=== PATIENT | female | born 1945 | race Caucasian/White ===

== ENCOUNTER 2022-06-10 08:26 | Outpatient (CLI) | payer MEDICARE, SELFPAY ==
[2022-06-10 19:44] LABS: Basophils Absolute Auto 0.1 K/mm3 (0.0-0.1); Basophils Percent Auto 0.7 % (0.2-1.2); Eosinophils Absolute Auto 0.1 K/mm3 (0-0.3); Eosinophils Percent Auto 1.4 % (0-4.4); Hematocrit 40.5 % (37.0-47.0); Immature Granulocyte Absolute 0.03 K/mm3 (0.00-0.031); Immature Granulocyte Percent A 0.3 % (0-0.5); Lymphocytes Absolute Auto 1.68 K/mm3 (0.9-3.2); Lymphocytes Percent Auto 18.3 % (18.3-44.2); Mean Corpuscular HGB Conc 32.1 g/dl (32-36); Mean Corpuscular Volume 90.4 fl (80-100); Mean Platelet Volume 10.8 fl (7.4-10.4); Monocytes Absolute Auto 0.8 K/mm3 (0.1-0.6); Monocytes Percent Auto 8.3 % (2.6-8.5); Neutrophils Absolute Auto 6.5 K/mm3 (1.3-6.7); Platelet Count Result 348 k/mm3 (150-375); Red Blood Count 4.48 M/mm3 (4.2-5.4); Red Cell Distribution Width 13.2 % (11.5-14.5); White Blood Count 9.2 K/mm3 (4.5-10.0)
[2022-06-10 20:45] LABS: Alanine Aminotransferase 19 U/L (6-35); Albumin Level 4.5 g/dL (3.5-5.1); Alkaline Phosphatase 75 U/L (38-126); Anion Gap 7 mmol/L (8-16); Aspartate Amino Transferase 31 U/L (14-36); Bilirubin,Total 0.6 mg/dL (0.2-1.3); Blood Urea Nitrogen 6 mg/dL (7-17); Calcium 9.6 mg/dL (8.4-10.2); Carbon Dioxide 29 mmol/L (22-30); Chloride 97 mmol/L (98-107); Cholesterol 214 mg/dL (0-200); Estimated Glomerular Filt Rate > 60; Glucose 111 mg/dL (65-110); HDL Direct 58 mg/dL; Potassium 3.9 mmol/L (3.4-5.0); Sodium 133 mmol/L (137-145); Triglycerides 136 mg/dL (<150)
[2022-06-10 20:56] LABS: LDL Cholesterol Direct 96 mg/dL
[2022-06-10 21:54] LABS: Vitamin D 25 Hydroxy 59.2 ng/mL
[2022-06-10 22:07] LABS: Thyroid Stimulating Hormone Reflex 0.417 uIU/mL (0.465-4.68)
[2022-06-11 09:00] LABS: Free T4 Free Thyroxine Reflex 1.63 ng/dL (0.78-2.19)
[2022-06-11 11:16] LABS: Total Triiodothyronine (T3) 1.31 NG/ML (0.97-1.69)
== END 2022-06-10 08:27 | disposition home or self-care (01) ==
LOC: ANHGOSHLAB 08:29
PROVIDERS: PCP Family Medicine; Visit Provider Family Medicine
DX: E78.5 Hyperlipidemia, unspecified (principal); I10 Essential (primary) hypertension; R53.83 Other fatigue; E55.9 Vitamin D deficiency, unspecified
CPT/HCPCS: 36415; 80053; 80061; 82306; 84439; 84443; 84480; 85025

== ENCOUNTER 2022-06-10 21:40 | Emergency (ER) | payer MEDICARE, SELFPAY ==
--- NOTE | ~2022-06-10 | XR_ITS ---
EXAMINATION: XR chest 2V 06/10/2022 22:13 INDICATION: Weakness. Nausea and vomiting. PROCEDURE: 2 view chest COMPARISON: No prior studies for comparison. FINDINGS: The lungs are clear. The cardiomediastinal silhouette is within normal limits. There are no pleural effusions. There is no pneumothorax suspected. There is atherosclerosis of the aorta. Th ere is severe osteoarthritis of the left shoulder. IMPRESSION: 1: NO ACUTE CARDIOPULMONARY DISEASE. Reviewed, dictated and finalized at location [facility] [employer]
[2022-06-10 21:54] VITALS: BP 151/80; PULSE 86; RESP 18; TEMP 36.6; O2SAT 95
--- NOTE | 2022-06-10 21:54 | ECG_ITS ---
Measurements Intervals [place] Rate: 81 P: 31 [place]: 135 QRS: 30 QRSD: 98 T: -4 QT: 360 QTc: 418 Interpretive Statements SINUS RHYTHM BORDERLINE ST-T WAVE ABNORMALITY- ANTEROLAT/INF LEADS BASELINE ARTIFACT- I, II, III, AVR, AVL, AVF BORDERLINE ECG NO PREVIOUS ECG AVAILABLE FOR COMPARISON Electronically Signed On 06-11-2022 7:59:07 PHLEBOTOMY SERVICES TECHNICIAN by Tommie Mars D.O.
[2022-06-10 22:20] LABS: Basophils Percent Auto 0.5 % (0.2-1.2); Eosinophils Absolute Auto 0.2 K/mm3 (0-0.3); Hematocrit 39.8 % (37.0-47.0); Immature Granulocyte Absolute 0.04 K/mm3 (0.00-0.031); Immature Granulocyte Percent A 0.5 % (0-0.5); Lymphocytes Absolute Auto 1.95 K/mm3 (0.9-3.2); Lymphocytes Percent Auto 23.2 % (18.3-44.2); Mean Corpuscular HGB Conc 32.7 g/dl (32-36); Mean Corpuscular Hemoglobin 29.5 pg (26-34); Mean Corpuscular Volume 90.5 fl (80-100); Mean Platelet Volume 9.7 fl (7.4-10.4); Monocytes Absolute Auto 0.9 K/mm3 (0.1-0.6); Monocytes Percent Auto 10.1 % (2.6-8.5); Neutrophils Absolute Auto 5.4 K/mm3 (1.3-6.7); Neutrophils Percent Auto 63.7 % (45.5-73.1); Platelet Count Result 330 k/mm3 (150-375); Red Cell Distribution Width 13.1 % (11.5-14.5); White Blood Count 8.4 K/mm3 (4.5-10.0)
[2022-06-10 22:47] LABS: Alanine Aminotransferase 19 U/L (6-35); Albumin Level 4.4 g/dL (3.5-5.1); Alkaline Phosphatase 73 U/L (38-126); Anion Gap 7 mmol/L (8-16); Aspartate Amino Transferase 24 U/L (14-36); Bilirubin,Total 0.5 mg/dL (0.2-1.3); Blood Urea Nitrogen 6 mg/dL (7-17); Calcium 9.7 mg/dL (8.4-10.2); Carbon Dioxide 28 mmol/L (22-30); Chloride 101 mmol/L (98-107); Estimated Glomerular Filt Rate > 60; Glucose 119 mg/dL (65-110); Potassium 3.7 mmol/L (3.4-5.0); Sodium 136 mmol/L (137-145)
--- NOTE | 2022-06-11 03:33 | ED.WEAKNESS ---
HPI - Weakness General Chief complaint: Weakness Stated complaint: I've been sick for 4-6 weeks Time Seen by Provider: 06/11/22 02:44 History of Present Illness HPI Narrative: This is a 77-year-old female with past medical history of gastritis, who presents emergency department complaining of being sick for 4 weeks. Patient states she has had epigastric abdominal pain approximately half an hour to an hour after eating and has been afraid to eat. She denies vomiting but has had 1 episode of loose stools without blood. She states she was seen by her primary care doctor and her omeprazole was increased from 20 mg to 40 mg. Related Data Home Medications Medication Instructions Recorded Confirmed cholecalciferol (vitamin D3) 1,250 50,000 unit PO WEEKLY 06/09/22 06/09/22 mcg (50,000 unit) capsule Allergies Allergy/AdvReac Type Severity Reaction Status Date / Time No Known Allergies Allergy Verified 06/11/22 03:10 Review of Systems Review of Systems: CONSTITUTIONAL: Denies fever, chills, or sweats. EYES: Denies visual changes, redness, or discharge. ENT: Denies rhinorrhea, congestion, sore throat, or otalgia. CARDIOVASCULAR: Denies chest pain, palpitations, or edema. RESPIRATORY: Denies cough or dyspnea. GASTROINTESTINAL: Epigastric abdominal pain denies nausea, vomiting, or diarrhea. GENITOURINARY: Denies dysuria or hematuria. SKIN: Denies rash or itching. MUSCULOSKELETAL: Denies back pain, joint pain, or myalgia. NEUROLOGIC: Denies headache, numbness, dizziness, or weakness. PSYCHIATRIC: Denies anxiety or depression. [facility] Past Medical History Medical History (Updated 06/11/22 @ 04:38 by Mariano Candelraia MD) Anxiety Essential (primary) hypertension Gastritis Hyperlipemia Hypertension Osteoarthritis Surgical History Surgical History H/O: hysterectomy 1980s Family History Family History Mother Family history of cardiovascular disease Father Cerebrovascular accident Social History Social History Smoking status: Former smoker Second hand tobacco smoke exposure: No Smoking end date: 06/06/81 Alcohol intake: current Alcohol use details: occasionnally Substance use: never Substance use type: does not use Gender identity (if verbalized by the patient): Female Agree to blood products: Yes Exam Narrative: GENERAL: Well-appearing, well-nourished, and in no acute distress. HEAD: Normocephalic, atraumatic. EYES: PERRLA and EOMI. ENT: Nares clear, no rhinorrhea or epistaxis. Mucous membranes moist. Oropharynx without tonsillar hypertrophy exudate or other lesions. NECK: Supple. No adenopathy or masses. No carotid bruits or JVD CHEST: Clear to auscultation. No respiratory distress. No wheezes rales or rhonchi HEART: Regular rate and rhythm. No murmur heard. Normal peripheral pulses. ABDOMEN: Well-healed midline, infraumbilical surgical scar, soft, nontender, Dewitt sign negative, nondistended, normal active bowel sounds. EXTREMITIES: Normal range of motion. No edema. SKIN: Warm, dry, no rash. NEURO: No focal deficits. Alert and oriented x3. PSYCH: Normal mood and affect. Course Course Emergency Course: 03:30 - CBC unremarkable. Chemistries demonstrate a sodium of 136 but otherwise unremarkable. Chest x-ray unremarkable. The patient's physical exam is not concerning for acute abdomen or cholecystitis. Her symptoms are consistent with GERD. Will treat with GI cocktail and Pepcid and reevaluate. Patient was seen by her primary care doctor on June 09 with the same diagnosis. 04:25 - Reassessed patient, she states her pain is improved. UA pending (if unremarkable, will discharge). Further discussion, patient states she takes ibuprofen regularly for her rheumatoid arthritis. Advised the patient to reduce ibu
[2022-06-11] MEDS: BELLADONNA ALK/PHENOB ELIX 10 ML, MAG HYDROX/ALUMINUM HYD/SIMETH 30 ML, LIDOCAINE HCL 2... PO (03:45)
[2022-06-11] MEDS: FAMOTIDINE 20 MG TABLET PO (03:46)
[2022-06-11 03:49] VITALS: BP 163/84; PULSE 80; RESP 16; O2SAT 97
[2022-06-11 04:22] LABS: Add Urine Microscopic? YES; Appearance Urine Clear (Clear); Bilirubin Urine Negative (Negative); Blood Urine Negative (Negative); Color Urine Yellow (Yellow); Glucose Urine UA Negative (Negative); Ketones Urine 1+ mg/dL (Negative); Leukocyte Esterase Ur Negative LEU/UL (Negative); Nitrate Urine Negative (Negative); Protein Urine 1+ mg/dL (Negative); Specific Grav Ur 1.015 (1.001-1.035); Urobilinogen Urine 0.2 mg/dL (<2.0)
[2022-06-11 04:28] LABS: Mucus Urine Rare /lpf; Squamous Epithelial Cell Urine Occasional /hpf (Few)
== END 2022-06-11 05:00 | disposition home or self-care (01) ==
PROVIDERS: Emergency Provider Preventive Medicine Aerospace Medicine; PCP Family Medicine
DX: K29.70 Gastritis, unspecified, without bleeding (principal); I10 Essential (primary) hypertension; E78.5 Hyperlipidemia, unspecified; M19.90 Unspecified osteoarthritis, unspecified site; Z90.710 Acquired absence of both cervix and uterus; Z87.891 Personal history of nicotine dependence
CPT/HCPCS: 36415; 71046; 80053; 80061; 81001; 82306; 84439; 84443; 84480; 85025; 93005; 99283; A9270

== ENCOUNTER 2022-07-14 00:15 | Day surgery (SDC) | payer MEDICARE, SELFPAY ==
[2022-06-30 14:49] VITALS: BMI 25.6
[2022-07-14 09:50] VITALS: BP 148/87; PULSE 112; RESP 18; TEMP 36.4; O2SAT 98
[2022-07-14] MEDS: LACTATED RINGERS 1,000 ML 150 ML IV CONT (09:52)
--- NOTE | 2022-07-14 10:00 | WPDANESEPPF ---
Anes - Initial Pre Proc Eval Procedure: Operation Date: 07/14/22 11:15 Proposed Procedures p Esophagogastroduodenoscopy & Screening Colonoscopy - Ramos Cruz MD Date/Time: 07/14/22 10:00 Surgeon: Ramos Cruz MD Pre Op Diagnosis: neoplasm screening, epigastric pain Patient Data Age: 77 Gender: F Height: 1.6 m Weight: 61.2 kg Last Vital Signs Temp 97.5 F L 07/14/22 09:50 Pulse 112 H 07/14/22 09:50 Resp 18 07/14/22 09:50 BP 148/87 H 07/14/22 09:50 Pulse Ox 98 07/14/22 09:50 O2 Del Method Room Air 07/14/22 09:50 Allergies Allergy/AdvReac Type Severity Reaction Status Date / Time No Known Allergies Allergy Verified 07/14/22 09:49 Home Medications Medication Instructions Recorded Confirmed Type lisinopril 10 1 tablet PO DAILY #90 tabs 05/03/22 07/14/22 Rx mg-hydrochlorothiazide 12.5 mg tablet metoprolol succinate 50 mg 50 mg PO DAILY #90 tabs 05/16/22 07/14/22 Rx tablet,extended release 24 hr Lactobacillus 1 cap PO BID #30 caps 05/20/22 07/14/22 Rx acidophil,plantar-Bifido no.7 25 billion cell capsule (up4 Probiotics Adult 50 Plus) rosuvastatin 20 mg tablet 20 mg PO .QHS #90 tabs 06/04/22 07/14/22 Rx cholecalciferol (vitamin D3) 1,250 50,000 unit PO WEEKLY 06/09/22 07/14/22 History mcg (50,000 unit) capsule omeprazole 40 mg capsule,delayed 40 mg PO BID #180 caps 06/09/22 07/14/22 Rx release famotidine 20 mg tablet (Pepcid) 20 mg PO BID 06/28/22 07/14/22 History lorazepam 0.5 mg tablet 0.5 mg PO DAILY PRN anxiety #30 06/28/22 07/14/22 Rx tabs acetaminophen 650 mg tablet 650 mg PO Q6H PRN Pain 06/30/22 07/14/22 History Patient hx anesthesia problems: none Family hx anesthesia problems: none Results Review: All pre-operative results and documents have been reviewed as part of the pre-operative evaluation. REPLACED BY [facility] Past Medical History Medical History Anxiety Essential (primary) hypertension Family history of colon cancer Gastritis Hyperlipemia Hypertension Osteoarthritis Surgical History Surgical History H/O: hysterectomy 1980s Family History Family History Mother Family history of cardiovascular disease Father Cerebrovascular accident Social History Social History Years smoked: 2 Smoking status: Former smoker Tobacco type: cigarettes Second hand tobacco smoke exposure: No Smoking end date: 06/06/81 Alcohol intake: current Alcohol use details: 3 beers per year & wine Substance use: never Substance use type: does not use Living arrangements: alone Occupation/Education: retired Gender identity (if verbalized by the patient): Female Spiritual care concerns: No Agree to blood products: Yes Anes - Eval Final PreProcedure Day of Procedure 07/14/22 10:00 Patient weight: normal Heart: regular rate and rhythm Lungs: clear to auscultation Airway: Mallampati scale class II Neurological: alert and oriented Last oral intake: >/= 8 hours ASA classification: III Emergent: no Anesthetic plan: proceed Anesthesia type and monitoring: general GIVS and standard monitoring Results Review: All pre-operative results and documents have been reviewed as part of the pre-operative evaluation. Informed Consent: The patient's anesthetic plan and its attendant risks and benefits were discussed with the patient/family/POA. Questions were solicited and answers provided to the satisfaction of the patient/family/POA.
--- NOTE | 2022-07-14 10:26 | WPDHPUPDATE1 ---
History and Physical Update Update Date/Time: 07/14/22 10:26 History and Physical has been reviewed, including an updated exam of the patient. There are NO changes in the patient's condition. Risks, benefits, and alternatives have been discussed and questions answered. Patient agrees to proceed with procedure.
--- NOTE | 2022-07-14 10:45 | SUR.OPER ---
EGD: start 1033 end 1040, Colon: start 1044 end 1055
[2022-07-14 10:59] VITALS: BP 100/60; PULSE 83; RESP 20; O2SAT 96
[2022-07-14 11:09] VITALS: BP 108/72; PULSE 89; RESP 20; O2SAT 98
[2022-07-14 11:19] VITALS: BP 132/93; PULSE 88; RESP 21; O2SAT 99
== END 2022-07-14 11:40 | disposition home or self-care (01) ==
PROVIDERS: PCP Family Medicine; Visit Provider Internal Medicine Gastroenterology
PROC: 0DJ08ZZ Inspection of Upper Intestinal Tract, Via Natural or Artificial Opening Endoscopic (ICD-10-PCS; CPT 43235; principal; 2022-07-14 11:15)
DX: Z12.11 Encounter for screening for malignant neoplasm of colon (principal); D12.2 Benign neoplasm of ascending colon; K64.8 Other hemorrhoids; R10.13 Epigastric pain; Z80.0 Family history of malignant neoplasm of digestive organs; R63.4 Abnormal weight loss; R11.0 Nausea; R63.0 Anorexia; I10 Essential (primary) hypertension; E78.5 Hyperlipidemia, unspecified; F41.9 Anxiety disorder, unspecified; Z87.891 Personal history of nicotine dependence
CPT/HCPCS: 45385; 43239; 88305; J2704; J7120

== ENCOUNTER 2022-07-28 09:42 | Outpatient (CLI) | payer MEDICARE, SELFPAY ==
--- NOTE | ~2022-07-28 | CT_ITS ---
CT Abdomen and Pelvis with contrast. History: Abdominal pain. Spiral CT of the abdomen and pelvis was performed after the administration of intravenous contrast. 1 00 cc of Omnipaque 350 was administered intravenously without complication. Dose reduction technique was used on this scan by utilizing automated exposure control and iterative reconstruction technique. The dose-length product (DLP) was 269.02 mGy-cm. Findings: Scans through the lung bases demonstrate mild atelectatic change. Calcified hepatic and splenic granulomas are present. The pancreas, gallbladder, adrenals and right k idney are within normal limits. Left parapelvic renal cysts are present. No evidence of aortic aneury sm. No lymphadenopathy is seen. There is no evidence of bowel obstruction. There is no evidence to suggest acute appendicitis or dive rticulitis. Images through the pelvis were performed. Urinary bladder unremarkable. No adnexal mass evident. No a scites is seen. Moderate to advanced bilateral hip joint osteoarthritis noted. Impression: No acute abnormalities seen. Chronic findings, as above. Reviewed, dictated and finalized at [facility]. 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 Chronic findings, as above.
[2022-07-28 10:13] LABS: Estimated Glomerular Filt Rate > 60
== END 2022-07-28 09:43 | disposition home or self-care (01) ==
LOC: ANHIMG 09:42
PROVIDERS: PCP Family Medicine; Visit Provider Internal Medicine Gastroenterology
DX: R10.13 Epigastric pain (principal); R63.4 Abnormal weight loss
CPT/HCPCS: 74177; Q9967

== ENCOUNTER 2024-11-01 16:10 | Emergency (ER) | payer MEDICARE, SELFPAY ==
--- NOTE | 2024-11-01 16:15 | ED_ITS ---
HPI - Dental/Oral General Chief complaint: Dental/Oral Stated complaint: Tooth Pain Time Seen by Provider: 11/01/24 16:14 History of Present Illness HPI Narrative: Presents to the [facility] care with complaints to the upper teeth gums that began in the last couple days. 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 Patient did recently have a right hip replacement and has had 6 months to have her teeth pulled. Patient has been using amoxicillin the protection her Dentist is out of town does need a refill. denies headache, dizziness, fever, chills, body aches, or rubs. Related Data Home Medications ?Medication ?Instructions ?Recorded ?Confirmed ?Last Taken ?Type acetaminophen 650 mg tablet 650 mg PO Q6H PRN Pain 06/30/22 03/05/24 Unknown History Lactobacillus 1 cap PO BID PRN 02/18/23 03/05/24 Unknown History acidophil,plantar-Bifido no.7 25 billion cell capsule (up4 Probiotics Adult 50 Plus) famotidine 20 mg tablet 20 mg PO DAILY PRN 03/05/24 03/05/24 Unknown History Allergies Allergy/AdvReac Type Severity Reaction Status Date / Time No Known Allergies Allergy Verified 11/01/24 16:27 Review of Systems Constitutional: Constitutional: Reports as per HPI Eyes: Eyes: Reports no additional eye complaints ENT: Reports as per HPI Comments: upper dental pain Cardiovascular: Cardiovascular: Reports no additional cardiovascular complaints Respiratory: Respiratory: Reports no additional respiratory complaints Musculoskeletal: Musculoskeletal: Reports no additional musculoskeletal complaints Integumentary/Breasts: Skin/Breast: Reports system reviewed and no additional complaints, except as docu Allergic/Immunologic: Allergic/Immunologic: Reports no additional allergic/immunologic complaints [facility] Past Medical History Medical History Weight loss Family history of colon cancer Essential (primary) hypertension Gastritis Anxiety Osteoarthritis Hyperlipemia Hypertension Surgical History Surgical History History of left cataract surgery (~07/2023) History of right hip replacement (~03/2023) History of right cataract surgery (~02/2023) H/O: hysterectomy 1980s Family History Family History Mother Family history of cardiovascular disease Father Cerebrovascular accident Social History Social History Social History: Caffeine-coffee Years smoked: 2 Smoking status: Former smoker Tobacco type: cigarettes Second hand tobacco smoke exposure: No Smoking end date: 06/06/83 Alcohol intake: current Alcohol use details: 3 beers per year & wine Substance use: never Substance use type: does not use Lack of Transportation: No Lack of Food: Never True Current Housing: I Have Housing Concerned About Future Housing: No Difficulty Paying Gas/Electric Bills: No Difficulty Paying for Meds: No Currently Unemployed: No Education: Master's Degree or Higher Difficulty w/ Childcare or Family Care: No Living arrangements: alone Occupation/Education: retired Gender identity (if verbalized by the patient): Female Spiritual care concerns: No Agree to blood products: Yes Exam Const: General: healthy appearing, no acute distress and alert Nutritional Appearance: well nourished Orientation/consciousness: patient oriented x3 Limitations: no limitations HENMT: Head: normal to inspection Face and sinus: normal facial exam and sinuses nontender Mouth: Yes moist mucous membranes and Yes Abnormal oral and palatal mucosa present Teeth and gingiva: abnormal tooth and associated gingiva Throat: posterior oropharynx normal Other: various areas of erythema and edema to upper dentition and gums. Neck: Neck: normal visual inspection and no lymphadenopathy Resp: Effort & Inspection: normal respiratory effort Auscultation: clear to auscultation bilaterally Cardio: Rate: regular rate Rhythm: regular rhythm Skin: General skin exam: normal color Rashes: no rashes Wounds: no wounds Neuro: General: patient oriented x3 Cranial nerves: Yes Nystagmus not present Speech: normal speech Gait exam (Neuro): Normal gait present Psych: Mental Status: mental status grossly normal Affect: normal affect Attitude: cooperative Course Course Level of Care: Express Care Visit Vital Signs Vital signs: Vital Signs Temperature 98.1 F 11/01/24 16:17 Pulse Rate 106 H 11/01/24 16:17 Respiratory Rate 16 11/01/24 16:17 Blood Pressure 143/83 H 11/01/24 16:17 Pulse Oximetry 97 11/01/24 16:17 Oxygen Delivery Room Air 11/01/24 16:17 Temperature 98.1 F 11/01/24 16:17 Pulse Rate 106 H 11/01/24 16:17 Respiratory Rate 16 11/01/24 16:17 Blood Pressure 143/83 H 11/01/24 16:17 Pulse Oximetry 97 11/01/24 16:17 Oxygen Delivery Room Air 11/01/24 16:17 MDM - Dental/Oral MDM Narrative Medical decision making narrative: Discharge instructions reviewed with patient, as well as provided in writing per nursing staff. The instructions also include specific and strict return/GO TO THE ER as well as f/u information. All questions have been answered, and the patient deny any further questions with discharge and discharge plan. Differential Diagnosis Differential diagnosis: Likely gingival abscess, dental caries, toothache, dental abscess and aphthous ulcer Medical Records Attestation: I reviewed the patient's medical records. Discharge Plan Discharge Clinical Impression: Chronic dental pain, Toothache, Dental abscess Patient Disposition: Home Condition: Stable Instructions: Antibiotic Form Additional Instructions: Take antibiotic until it's gone. Brushing teeth at least twice daily with gentle flossing. Avoid temperature extremes---when you eat. Salt gargle to rinse your mouth after every meal You may apply ice to the face to reduce pain/swelling. For pain, you may take: Tylenol 650-1000mg by mouth every 4-6 hours. Do not exceed 4000mg in 24 hours. Advil (Ibuprofen) 600 mg by mouth every 6 hours. Do not exceed 2400mg in 24 hours. Also, recommend regular dental check up one-two times a year to prevent tooth decay and other periodontal disease. Follow-up with the dentist as soon as possible--see the list provided Patient Language: Maldivian Prescriptions: New amoxicillin 875 mg tablet 875 mg PO Q12H Qty: 28 1RF No Action up4 Probiotics Adult 50 Plus 25 billion cell capsule 1 cap PO BID PRN famotidine 20 mg tablet 20 mg PO DAILY PRN acetaminophen 650 mg Tablet 650 mg PO Q6H PRN (Reason: Pain) rosuvastatin 20 mg tablet 20 mg PO .QHS Qty: 90 1RF lisinopril-hydrochlorothiazide 10-12.5 mg tablet 1 tablet PO DAILY Qty: 90 2RF lorazepam 0.5 mg tablet 0.5 mg PO DAILY PRN (Reason: anxiety) Qty: 30 2RF cholecalciferol (vitamin D3) 50 mcg (2,000 unit) tablet 50 mcg PO DAILY Qty: 90 1RF metoprolol succinate 50 mg tablet extended release 24 hr 50 mg PO DAILY Qty: 90 1RF Follow-up/Referrals: Angélica Amaya MD [Physician] - PHYSICIAN,ROTARY DUMP OPERATOR [Primary Care Provider] - Time of Disposition: 16:30
[2024-11-01 16:17] VITALS: BP 143/83; PULSE 106; RESP 16; TEMP 36.7; O2SAT 97
== END 2024-11-01 16:43 | disposition home or self-care (01) ==
PROVIDERS: Emergency Provider Nurse Practitioner Family
DX: G89.29 Other chronic pain (principal); K08.89 Other specified disorders of teeth and supporting structures; K04.7 Periapical abscess without sinus; Z87.891 Personal history of nicotine dependence; I10 Essential (primary) hypertension; E78.5 Hyperlipidemia, unspecified; M19.90 Unspecified osteoarthritis, unspecified site; F41.9 Anxiety disorder, unspecified; Z96.641 Presence of right artificial hip joint
CPT/HCPCS: 99213; G0463

== ENCOUNTER 2025-04-29 08:21 | Outpatient (CLI) | payer MEDICARE, SELFPAY ==
--- OUTSIDE RECORDS SUMMARY | 2025-04-29 08:28 | XMS_ITS | Clinical Summary ---
Author Organization [facility] [address] [place] Address [address] [place] [id number] Care Team Providers Care Banana Expert Name Role Phone Chandrakant Steiner MD Unavailable [phone] Parviz Amaya MD Primary Care Provider Allergies No known active allergies Medications lisinopril-hydroCH LOROthiazide (ZESTORETIC) 10-12.5 mg per tablet Take 1 tablet by mouth daily 2 Active LORazepam (ATIVAN) 0.5 mg tablet Take 1 tablet (0.5 mg total) by mouth every 8 (eight) hours as needed 2 Active metoprolol XL (TOPROL-XL) 50 mg extended release tablet Take 1 tablet (50 mg total) by mouth daily 2 Active rosuvastatin (CRESTOR) 20 mg tablet Take 1 tablet (20 mg total) by mouth daily 2 Active Vitamin D3 50 mcg (2,000 unit) tablet Take 1 tablet (2,000 Units total) by mouth daily 3 Active famotidine (PEPCID) 20 mg tablet Take 1 tablet (20 mg total) by mouth 2 (two) times a day 3 Active omeprazole (PriLOSEC) 40 mg capsule Take 1 capsule (40 mg total) by mouth daily 3 Active ascorbic acid (VITAMIN C) 500 mg tablet,chewableInd ications:Vitamin deficiency prevention Take 1 tablet/chew tab (500 mg total) by mouth daily 30 tablet/chew tab 4 Active aspirin 325 mg enteric coated tabletIndications: Deep Vein Thrombosis Prevention Take 1 tablet (325 mg total) by mouth daily 42 tablet 4 05/10/20 25 Active celecoxib (CeleBREX) 200 mg capsuleIndications :Pain Take 1 capsule (200 mg total) by mouth 2 (two) times a day 84 capsule 4 Active ferrous sulfate 325 mg (65 mg of elemental iron) tabletIndications: Iron Deficiency Anemia,Anemia prevention Take 1 tablet (325 mg total) by mouth daily with breakfast 30 tablet 4 05/10/20 25 Active HYDROcodone-acetam inophen (NORCO) 5-325 mg per tabletIndications: Pain Take 1-2 tablets by mouth every 4 (four) hours as needed for pain 40 tablet 4 Active ondansetron ODT (ZOFRAN-ODT) 4 mg disintegrating tabletIndications: nausea and vomiting Take 1 tablet (4 mg total) by mouth every 6 (six) hours as needed for nausea or vomiting 20 tablet 2 4 Active senna-docusate (PERICOLACE) 8.6-50 mgIndications:cons tipation Take 2 tablets by mouth 2 (two) times a day 60 tablet 2 4 Active amoxicillin (AMOXIL) 500 mg tablet/capsule Take 4 tablets one hour prior to dental procedure 4 tablet/capsu le 2 5 Active Active Problems Problem Noted Date Diagnosed Date Primary osteoarthritis of left hip 05/01/2024 History of total hip arthroplasty, right 023 Arthritis of both hips 03/28/2023 Primary osteoarthritis of right hip 03/28/2023 Primary osteoarthritis of both hips 03/09/2023 Surgical History Surgery Date Site/Laterality Comments HYSTERECTOMY Total TOTAL HIP ARTHROPLASTY 03/28/2023 Right CATARACT EXTRACTION, BILATERAL Medical History Medical History Date Comments Hypertension High cholesterol Anxiety GERD (gastroesophageal reflux disease) Family History Medical History Relation Name Comments Alcohol abuse Other Arthritis Other Cancer Other Hypertension Other Stroke Other Relation Name Status Comments Other Social History Tobacco Use Types Packs/Day Years Used Date Smoking Tobacco: Former Cigarettes Q uit: 1982 Smokeless Tobacco: Never Tobacco Cessation:Counseling Given: Not Answered AUDIT-C Answer Date Recorded Q1: How often do you have a drink containing alc ohol? 2-4 times a month 05/02/2024 Q2: How many drinks containi ng alcohol do you have on a typical day when you are drinking? 1 or 2 05/02/2024 Frequency of Binge Drinking Not on file 04/07 PHQ-2 Answer Date Recorded PHQ-2 Total Score (If total score is 3 or more points, staff should administer the PHQ-9) 0 05/09/2024 Personal Safety Answer Date Recorded Have you ever been in or are you currently in a harmful physical or emotional relationship or is someone making you feel afraid or unsafe? 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 Pulse 85 05/10/2024 10:56 AM HEAVY MEDIA OPERATOR Temperature 36.9 C (98.5 F) 05/10/2024 10:56 AM HEAVY MEDIA OPERATOR Respiratory Rate 20 05/10/2024 10:56 AM HEAVY MEDIA OPERATOR Oxygen Saturation 100% 05/10/2024 10:56 AM HEAVY MEDIA OPERATOR Inhaled Oxygen Concentration - - Weight 68.5 kg (151 lb 0.2 oz) 05/09/2024 9:03 A M HEAVY MEDIA OPERATOR Height 160 cm (5' 3) 05/09/2024 9:03 AM HEAVY MEDIA OPERATOR Body Mass Index 26.75 05/09/2024 9:03 AM HEAVY MEDIA OPERATOR Plan of Treatment Health Maintenance Due Date Last Done Comments Osteoporosis Screening-Bone Density Scan 1943 DTaP/Tdap/Td Vaccine (1 - Tdap) 1954 Hepatitis B Screening 1961 Pneumococcal vaccine 65+ (1 of 1 - PCV) 1993 Zoster Vaccine (1 of 2) 1993 Well Visit 65+ 02/18/2008 Influenza Vaccine (#1) 2025 Depression Screening 05/01/2025 05/01/2024, 03/09/20 23 Fall Risk Assessment 05/10/2025 05/10/2024, 05/01/20 24 Medical Devices Implanted Type Area Caustic Pump Operator Device Identifier Shelf Expiration Date Model / Serial / Lot Dep [employer] [place] 56mm Sector Hip Shell Acetabular Gription Sterile Latex Free [id number] - [id number] Implanted:Qty: 1 on 03/28/2023 by Chandrakant Steiner MD at [facility] Right: Hip [employer] 01/03/2033 [id number] / / [id number] [employer] [place] 56mm 36mm Hip Neutral Liner Acetabular Altrx Sterile Latex Free [id number] - [id number] Implanted:Qty: 1 on 03/28/2023 by Chandrakant Steiner MD at [facility] Right: Hip [employer] 08/04/2027 [id number] / / [id number] [employer] [place] 6.5mm 35mm Acetabular Cancellous Screw Bone Sterile 1217-35-500 - [id number] Implanted:Qty: 1 on 03/28/2023 by Chandrakant Steiner MD at [facility] Right: Hip [employer] 12/03/2032 1217-35-500 / / [id number] [employer] Actis Collar Hip 4 High Offset Stem Femoral [id number] - [id number] Implanted:Qty: 1 on 03/28/2023 by Chandrakant Steiner MD at [facility] Right: Hip [employer] 02/03/2033 [id number] / / [id number] [employer] Articul/Jonathan 36mm Cementless Hip +1.5mm 12/14 Taper Head Femoral Latex Free [id number] - [id number] Implanted:Qty: 1 on 03/28/2023 by Chandrakant Steiner MD at [facility] Right: Hip [employer] 02/04/2028 [id number] / / [id number] [employer] Head Femoral Hip 12/14 Taper Articul/Jonathan 36mm Ceramic 2mm Offset [id number] - [id number] Implanted:Qty: 1 on 05/09/2024 by Chandrakant Steiner MD at [facility] Left: Hip [employer] [id number] 02/03/2034 [id number] / / [id number] [employer] [place] 54mm 36mm Hip Neutral Liner Acetabular Altrx Sterile Latex Free [id number] - [id number] Implanted:Qty: 1 on 05/09/2024 by Chandrakant Steiner MD at [facility] Left: Hip [employer] [id number] 02/03/2029 [id number] / / [id number] [employer] [place] 54mm Sector Hip Shell Acetabular Gription Sterile Latex Free [id number] - [id number] Implanted:Qty: 1 on 05/09/2024 by Chandrakant Steiner MD at [facility] Left: Hip [employer] [id number] 09/03/2033 [id number] / / [id number] [employer] [place] 6.5mm 35mm Acetabular Cancellous Screw Bone Sterile 1217-35-500 - [id number] Implanted:Qty: 1 on 05/09/2024 by Chandrakant Steiner MD at [facility] Left: Hip [employer] [id number] 11/03/2033 1217-35-500 / / [id number] [employer] Stem Femoral Hip Porous Proximal Collared Actis Titanium High Offset Size 4 [id number] - [id number] Implanted:Qty: 1 on 05/09/2024 by Chandrakant Steiner MD at [facility] Left: Hip [employer] [id number] 02/03/2034 [id number] / / [id number] Insurance AETNA MEDICARE AETNA MEDICARE Advance Directives For more information, please contact: [phone] * Full Code (Latest Code Status on File) Date Activated Date Inactivated Comments 05/09/2024 3:04 PM 05/10/2024 4:28 PM * Full Code Date Activated Date Inactivated Comments 03/28/2023 12:54 PM 03/29/2023 10:14 PM Care Teams Banana Expert Relationship Specialty Start Date End Date Parviz Amaya MD [address] [place], [place] [id number] PCP - General Family Practice 04/30/24 Chandrakant Steiner MD [address] [place] [address] [address] [place] [address] Surgeon Orthopedic Surgery 03/29/23
[2025-04-29 13:04] LABS: Hematocrit 43.5 % (37.0-47.0); Hemoglobin 13.5 g/dL (12.0-15.0); Immature Granulocyte Percent A 0.4 % (0-0.5); Lymphocytes Absolute Auto 2.73 K/mm3 (0.9-3.2); Mean Corpuscular HGB Conc 31.0 g/dl (32-36); Mean Corpuscular Hemoglobin 29.4 pg (26-34); Mean Corpuscular Volume 94.8 fl (80-100); Nucleated Red Blood Cells Absolute Auto 0.000 K/mm3 (0.0-0.012); Nucleated Red Blood Cells Perc 0.0 % (0.0-0.2); Platelet Count Result 293 k/mm3 (150-375); Red Blood Count 4.59 M/mm3 (4.2-5.4); White Blood Count 10.9 K/mm3 (4.5-10.0)
[2025-04-29 13:25] LABS: Alanine Aminotransferase 18 U/L (6-35); Albumin Level 4.5 g/dL (3.5-5.1); Alkaline Phosphatase 86 U/L (38-126); Anion Gap 8 mmol/L (4-12); Aspartate Amino Transferase 46 U/L (14-36); Bilirubin,Total 0.7 mg/dL (0.2-1.3); Blood Urea Nitrogen 14 mg/dL (7-17); Calcium 10.2 mg/dL (8.4-10.2); Carbon Dioxide 29 mmol/L (22-30); Chloride 101 mmol/L (98-107); Cholesterol 199 mg/dL (0-200); Estimated Glomerular Filt Rate > 60; Glucose 89 mg/dL (65-110); HDL Direct 55 mg/dL; Potassium 4.6 mmol/L (3.4-5.0); Sodium 138 mmol/L (137-145); Total Protein 7.7 g/dL (6.3-8.2); Triglycerides 183 mg/dL (<150)
[2025-04-29 13:47] LABS: Hemoglobin A1C 5.8 % (<5.7)
[2025-04-29 14:12] LABS: Thyroid Stimulating Hormone Reflex 0.480 uIU/mL (0.465-4.68)
[2025-04-29 14:19] LABS: Vitamin B12 341.0 pg/mL (239-931)
== END 2025-04-29 08:22 | disposition home or self-care (01) ==
PROVIDERS: PCP Family Medicine; Visit Provider Family Medicine
DX: R73.9 Hyperglycemia, unspecified (principal); I10 Essential (primary) hypertension; Z00.00 Encounter for general adult medical examination without abnormal findings; E55.9 Vitamin D deficiency, unspecified; E78.5 Hyperlipidemia, unspecified; E53.8 Deficiency of other specified B group vitamins
CPT/HCPCS: 36415; 80053; 80061; 82306; 82607; 83036; 84443; 85025